=== PATIENT | female | born 1945 | race Caucasian/White ===

== ENCOUNTER 2019-05-06 18:16 | Emergency (ER) | payer MEDICARE, BC ==
[~2019-05-06 18:16] MED LIST: ATROPINE SULFATE INJ 1 MG/10 ML DISP.SYRIN IV ONE; CALCIUM GLUCONATE 1000 MG/10 ML INJ IV ONE; EPINEPHRINE INJ 1 MG/10 ML DISP.SYRIN ONE; NOREPINEPHRINE BITARTRATE INJ/PF 4 MG/4 ML SDV IV ONE; SODIUM BICARBONATE 8.4% INJ 50 MEQ/50 ML DISP.SYRIN ONE
[2019-05-06] MEDS ORDERED: MIDAZOLAM HCL 50 MG/100 ML RTUINJ IV PRN (18:45)
[2019-05-06] MEDS ORDERED: DEXTROSE 5%-WATER 250 ML with EPINEPHRINE/PF 1 MG IV PRN ×2 (18:48)
--- NOTE | 2019-05-06 18:52 | ER Document Report ---
ED General - General Chief Complaint: Unresponsive Stated Complaint: UNRESPONSIVE Time Seen by Provider: 05/06/19 18:16 Notes: 73-year-old female brought in by EMS due to being found unresponsive in her bed at home. Patient has a history of mild dementia, and has been staying with her daughter for the past month and a half and when her daughter came home today she found her mother in her bed, covered with feces and not responding. Daughter checked her blood sugar and it read high on the monitor. Patient has a history of noncompliance with her insulin. When EMS arrived she had a GCS of 3, her pulse ox was 85% on room air and they suspected she had aspirated due to likely hematemesis as they saw coffee-ground emesis in the room. EMS did intubate her with a 7-0 ET tube at 21 at the lip. They intubated her using ketamine and rocuronium. Daughter states that patient had a history of a GI bleed several years ago near her duodenum and her jejunum that was treated with surgery. Has a history of noncompliance with insulin for her diabetes, and has a questionable history of a partial blockage in her heart that has not been followed up. - Related Data Allergies/Adverse Reactions: No Known Allergies Allergy (Unverified 05/06/19 20:45) Past Medical History - General Information source: Relative, Emergency Med Personnel Cannot obtain history due to: Intubated - Social History Smoking Status: Unknown if Ever Smoked Frequency of alcohol use: None Drug Abuse: None Family History: CAD, Other - Dementia Review of Systems - Review of Systems -: Yes ROS unobtainable due to patient's medical condition Physical Exam - Vital signs Vitals: Pulse Ox 95 05/06/19 18:35 Notes: On arrival patient was mildly tachycardic, saturating well while being bagged on room air, not hypotensive. Patient rapidly became bradycardic and hypotensive shortly after being transition from the EMS stretcher to the bed. - Notes Notes: GENERAL: Intubated, does not withdraw from painful stimuli, GCS of 3T. HEAD: Normocephalic, atraumatic EYES: Pupils dilated, equal, reactive to light, approximately 4 mm. ENT: Oral mucosa moist, tongue midline. NECK: Full range of motion, supple, trachea midline. LUNGS: Clear to auscultation bilaterally, no wheezes, rales or rhonchi, being bagged through the ET tube. HEART: Regular rate and rhythm, no murmurs, gallops, rubs. ABDOMEN: Soft, nontender, nondistended, bowel sounds present in all 4 quadrants. EXTREMITIES: Does not spontaneously move any of her extremities. Does not withdraw from painful stimuli, no edema, radial and dorsalis pedis pulses 1/4 bilaterally. No cyanosis. NEUROLOGICAL: GCS 3 T, does not withdraw, currently no gag while intubated. SKIN: Warm, Dry, feces across her lower extremities, no abrasions, no signs of trauma. Course - Re-evaluation Re-evalutation: 05/06/19 20:48 Received a phone call from Dr. Vegas, 20:[address] Tidwell had called him and that Dr. Tidwell was concerned we are missing a STEMI on this patient. I had the flaring machine operator page Dr. Tidwell and I spoke with Dr. Tidwell at 20:14, Dr. Tidwell states that he thinks this patient has a left main occlusion and immediately needs to be flown out for immediate revascularization. I did call cardiac connection at [facility] and faxed to them the EKGs as requested by transfer line for their interventionalists to look at. I am awaiting a phone call back. As the patient appears to have coffee-ground emesis coming out of her NG tube I do not know that is a good idea to give heparin at this time while I am waiting to hear back from [facility]. 05/06/19 22:37 Phone call back from [facility] stated that their cardiac interventionalist, Dr. Simeon does not feel this patient is a candidate for immediate intervention, agrees with me that this patient does not meet STEMI criteria at this time. Recommends that I discussed the patient with their animal treatment investigator. Discussed the patient with animal treatment investigator Dr. Maza, agrees to accept the patient to their ICU, recommends flying if possible given her mounting hyperthermia and the fact that we are only able to do cold liquids and ice packs. Unfortunately [facility] is not flying so patient will be transferred via ground with a critical care transport. 05/06/19 22:42 This part of my note is actually delayed entry regarding the course of her stay from arrival to present time. Patient arrived intubated, being manually bagged, and was unresponsive. Initially vital signs were good with only mild tachycardia, no hypoxia and no bradycardia or hypotension. Shortly after being transitioned from EMS stretcher to the ED bed patient became progressively more bradycardic and hypotensive. I ordered atropine 0.5 mg IV to treat the bradycardia, but before he could be given patient went into cardiac arrest, CPR was started, patient was given milligram of epi and 1 mg of atropine, patient had another milligram of epinephrine and another round of CPR, patient then had ROSC, bedside ultrasound showed moderate cardiac squeeze, no pericardial effusion. Patient was somewhat hypotensive so I did order 0.1 mg of push dose epi, as it was being given patient became quite tachycardic, SVT into the 180s, this normalized after ap proximately 1 minute, patient then became hypotensive a little bit later and was started on about epinephrine drip that eventually had to be titrated to 20 mcg/min. Femoral central line was placed on the right in order to preserve the upper central venous access sites for possible pacemaker in case this patient has tachybradycardia syndrome because she did have a pulseless arrest in asystole that started out as bradycardia and then she immediately became tachycardic. She actually 2 separate episodes of tachycardic 1 that was after epinephrine administration and one that occurred 5 minutes after epinephrine administration. Patient has not yet needed to be paced. 05/06/19 23:13 CBC shows leukocytosis but surprisingly no anemia, no blood has been given at this point, PT and INR are both somewhat prolonged, arterial blood gas shows market acidosis with a pH of 7.0, PCO2 of 51, PO2 of 135, chemistries show hypokalemia of 2.9 but market hyperglycemia at 929. I did start K riders, I hav e not yet started an insulin drip because I want to make sure her potassium is rising before we give her insulin and potentially lower her potassium. Patient CO2 is low at 13, anion gap of 24, BUN and creatinine are elevated indicating renal failure with a BUN of 24 and creatinine of 3.34, lactic acid is markedly elevated at 18.2, calcium is normal, magnesium is elevated, CK, CK-MB MB and troponin are all elevated at 1297, 11.8, 1.9 respectively. Urinalysis shows large blood but only 3 RBCs. NG tube has coffee-ground stomach contents in it, it is heme positive. Patient is now becoming hyperthermic, temp Lerner reveals a temperature of 100.2. Patient is being given non-warmed fluids and ice packs have been placed. CT scan of the head has been completed and does not show any acute bleeding, chest x-ray does not show any signs of pneumonia or pneumonitis from aspiration. Daughter understands the critical nature of her condition, states that the patient is a full code. 05/06/19 23:13 Transport is currently at bedside. Patient is stable for transport. Epinephrine drip has been able to be weaned down a small amount. - Vital Signs Vital signs: Temp Pulse Resp BP Pulse Ox 99.1 F 16 129/52 H 100 05/06/19 22:46 05/06/19 22:45 05/06/19 22:46 05/06/19 22:46 - Laboratory Result Diagrams: 05/06/19 18:41 05/06/19 18:41 Laboratory results interpreted by me: 05/06/19 05/06/19 05/06/19 18:37 18:41 18:41 WBC 25.3 H MCHC 31.1 L RDW 15.1 H Abs Neuts (Manual) 19.7 H Abs Basophils (Manual) 0.3 H PT 19.0 H Carbonic Acid ABG pH ABG pCO2 ABG pO2 ABG HCO3 ABG Total CO2 Sodium Potassium Chloride Carbon Dioxide Anion Gap BUN Creatinine Est GFR ( Amer) Est GFR (MDRD) Non-Af Glucose POC Glucose 326 H Lactic Acid Magnesium Direct Bilirubin AST Creatine Kinase CK-MB (CK-2) Urine Protein Urine Glucose (UA) Urine Ketones Urine Blood 05/06/19 05/06/19 05/06/19 18:41 18:41 18:41 WBC MCHC RDW Abs Neuts (Manual) Abs Basophils (Manual) PT Carbonic Acid ABG pH ABG pCO2 ABG pO2 ABG HCO3 ABG Total CO2 Sodium 145.3 H Potassium 2.9 L* Chloride 92 L Carbon Dioxide 13 L Anion Gap 40 H BUN 24 H Creatinine 3.34 H Est GFR ( Amer) 16 L Est GFR (MDRD) Non-Af 14 L Glucose 929 H* POC Glucose Lactic Acid 18.2 H Magnesium 3.7 H Direct Bilirubin 0.5 H AST 397 H Creatine Kinase 1297 H CK-MB (CK-2) 11.80 H Urine Protein Urine Glucose (UA) Urine Ketones Urine Blood 05/06/19 05/06/19 19:11 21:54 WBC MCHC RDW Abs Neuts (Manual) Abs Basophils (Manual) PT Carbonic Acid 1.56 H ABG pH 7.00 L* ABG pCO2 51.7 H ABG pO2 135.9 H ABG HCO3 12.5 L ABG Total CO2 14.1 L Sodium Potassium Chloride Carbon Dioxide Anion Gap BUN Creatinine Est GFR ( Amer) Est GFR (MDRD) Non-Af Glucose POC Glucose Lactic Acid Magnesium Direct Bilirubin AST Creatine Kinase CK-MB (CK-2) Urine Protein >=500 H Urine Glucose (UA) >=500 H Urine Ketones 20 H Urine Blood LARGE H - EKG Interpretation by Me Additional EKG results interpreted by me: 05/06/19 23:14 EKG shows sinus tachycardia at a rate of 104, LVH, ST segment elevations in 3 and aVR, no contiguous elevations, there are depressions in 1, 2, aVL, V3 through V6 per my interpretation. Repeat EKG at 2019 shows sinus tachycardia at a rate of 103, LVH, persistent ST segment elevations in lead III and aVR, no contiguous changes, slight improvement in ST segment depressions, they have resolved in lead II, they are persistent in lead I, aVL, V3 through V6 per my interpretation. Procedures - Central Line Right Femoral Consent obtained: Yes Central line pre-insertion: Sterile PPE donned, Chloraprep applied, Sterile drapes applied Central line size (Fr.): 20 Central line lumen type: Triple Ultrasound guided: Yes CM at insertion site: 20 Line secured with sutures: Yes Central line post-insertion: Blood return from lumens, Biopatch applied, Sutured, Sterile dressing applied Number of attempts: 1 Complications: No Critical Care Note - Critical Care Note Total time excluding time spent on procedures (mins): 140 Discharge - Discharge Clinical Impression: Cardiac arrest, Acute respiratory failure with hypoxia, Mixed metabolic and respiratory acidosis, Lactic acidosis, Hypokalemia, Elevated troponin Acute renal failure Qualifiers: Acute renal failure type: unspecified Qualified Code(s): N17.9 - Acute kidney failure, unspecified Hyperglycemia due to type 2 diabetes mellitus Qualifiers: Diabetes mellitus long term care administrator insulin use: with long term care administrator use Qualified Code(s): E11.65 - Type 2 diabetes mellitus with hyperglycemia; Z79.4 - predatory animal exterminator (current) use of insulin Condition: Critical Disposition: [facility]
[2019-05-06 19:03] LABS: HEMATOCRIT 45.6 % (36.0-47.0); HEMOGLOBIN 14.2 g/dL (12.0-15.5); MEAN CORPUSCULAR HEMOGLOBIN 29.8 pg (27.0-33.4); MEAN CORPUSCULAR HGB CONC 31.1 g/dL (32.0-36.0); MEAN CORPUSCULAR VOLUME 96 fl (80-97); PLATELET COUNT 311 10^3/uL (150-450); RED BLOOD COUNT 4.77 10^6/uL (3.72-5.28); RED CELL DISTRIBUTION WIDTH 15.1 % (11.5-14.0); WHITE BLOOD COUNT 25.3 10^3/uL (4.0-10.5)
[2019-05-06 19:11] LABS: ALBUMIN 3.7 g/dL (3.5-5.0); ALKALINE PHOSPHATASE 116 U/L (38-126); BILIRUBIN,DIRECT 0.5 mg/dL (0.0-0.4); BILIRUBIN,TOTAL 0.6 mg/dL (0.2-1.3); BLOOD UREA NITROGEN 24 mg/dL (7-20); CALCIUM 9.7 mg/dL (8.4-10.2); CARBON DIOXIDE 13 mmol/L (22-30); CHLORIDE 92 mmol/L (98-107); CREATINE KINASE 1297 U/L (30-135); INTERNATIONAL RATION (INR) 1.58; TOTAL PROTEIN 6.8 g/dL (6.3-8.2)
--- NOTE | 2019-05-06 19:14 | RADIOLOGY REPORT (SQ) ---
EXAM DESCRIPTION: CHEST SINGLE VIEW COMPLETED DATE/TIME: 05/06/2019 7:00 pm REASON FOR STUDY: post arrest COMPARISON: None. EXAM PARAMETERS: NUMBER OF VIEWS: One view. TECHNIQUE: Single frontal radiographic view of the chest acquired. RADIATION DOSE: NA LIMITATIONS: None. FINDINGS: LUNGS AND PLEURA: Mild interstitial prominence, probably chronic. No opacities, masses or pneumothorax. No pleural effusion. MEDIASTINUM AND HILAR STRUCTURES: No masses. Contour normal. HEART AND VASCULAR STRUCTURES: Heart upper limits of normal in size. Normal vasculature. BONES: No acute findings. HARDWARE: Endotracheal tube, tip located 4 cm proximal to the beatriz. OTHER: No other significant finding. IMPRESSION: ENDOTRACHEAL TUBE IN SATISFACTORY POSITION. NO ACUTE RADIOGRAPHIC FINDING IN THE CHEST. TECHNICAL DOCUMENTATION: JOB ID: [id number] 2010 [employer]- All Rights Reserved Reading location - IP/workstation name: [email or web address]
[2019-05-06 19:17] LABS: ANION GAP 40 (5-19)
[2019-05-06 19:19] LABS: ASPARTATE AMINO TRANSFERASE 397 U/L (14-36)
[2019-05-06 19:21] LABS: GLUCOSE 929 mg/dL (75-110); POTASSIUM 2.9 mmol/L (3.6-5.0)
[2019-05-06 19:23] LABS: CREATINE KINASE MB 11.8 ng/mL (<4.55)
[2019-05-06 19:34] LABS: ABSOLUTE LYMPHOCYTES# (MANUAL) 4.3 10^3/uL (0.5-4.7); ABSOLUTE MONOCYTES # (MANUAL) 0.8 10^3/uL (0.1-1.4); ANISOCYTOSIS SLIGHT; BASOPHILS % (MANUAL) 1 % (0-2); EOSINOPHILS % (MANUAL) 1 % (0-6); LYMPHOCYTES % (MANUAL) 17 % (13-45); MONOCYTES % (MANUAL) 3 % (3-13); NUCLEATED RED BLOOD CELLS 1 /100 WBC (0); SEGMENTED NEUTROPHILS % (MAN) 78 % (42-78); TOTAL CELLS COUNTED 100
[2019-05-06 19:35] LABS: PLATELET COMMENT ADEQUATE; TROPONIN I 1.91 ng/mL
[2019-05-06] MEDS ORDERED: EPINEPHRINE INJ/PF 1 MG/1 ML AMPULE ONE ×4 (19:41→22:06)
--- NOTE | 2019-05-06 20:05 | EKG REPORT ---
SEVERITY:- ABNORMAL ECG - SINUS TACHYCARDIA PROBABLE LEFT ATRIAL ABNORMALITY LVH WITH SECONDARY REPOLARIZATION ABNORMALITY ELEVATION IN aVR with DIFFUSE ST DEPRESSION SUGGESTS SUBENDOCARDIAL ISCHEMIA AND INFARCTION OF THE BA JENA SEPTUM ,IS AN INDICATION FOR ACUTE REPERFUSION THERAPY.REPORT CALLED TO ER. BORDERLINE PROLONGED QT INTERVAL : Confirmed by: Jesse Tidwell MD 06-May-2019 20:05:34
[2019-05-06 20:08] LABS: APPEARANCE,URINE CLOUDY; BILIRUBIN,URINE NEGATIVE (NEGATIVE); COLOR,URINE YELLOW; GLUCOSE, URINE >=500 mg/dL (NEGATIVE); KETONES,URINE 20 mg/dL (NEGATIVE); LEUKOCYTE ESTERASE,URINE NEGATIVE (NEGATIVE); NITRITE,URINE NEGATIVE (NEGATIVE); PROTEIN,URINE >=500 mg/dL (NEGATIVE); URINE SPECIFIC GRAVITY 1.024; UROBILINOGEN,URINE NEGATIVE mg/dL (<2.0)
[2019-05-06] MEDS ORDERED: RINGERS SOLUTION,LACTATED 1,000 ML IV PRN (20:17)
[2019-05-06] MEDS: POTASSI CL 20 MEQ/50 ML RIDER 20 MEQ/50 ML RTUPB IV SCH ×2 (20:40→22:09)
[2019-05-06] MEDS ORDERED: AZITHROMYCIN INJ 500 MG VIAL IV ONE (21:58)
[2019-05-06] MEDS ORDERED: CEFTRIAXONE 1 GM/D5W RTU 1 GM/50 ML RTUPB IV ONE (21:58)
[2019-05-06 22:09] LABS: ARTERIAL BLOOD BASE EXCESS -18.7 mmol/L; ARTERIAL BLOOD H2CO3 1.56 mmol/L (1.05-1.35); ARTERIAL BLOOD HCO3 12.5 mmol/L (20-24); ARTERIAL BLOOD O2 SATURATION 97.1 % (94-98); ARTERIAL BLOOD PCO2 51.7 mmHg (35-45); ARTERIAL BLOOD PO2 135.9 mmHg (80-100); ARTERIAL BLOOD TOTAL CO2 14.1 mmol/L (21-25)
[2019-05-06 22:10] LABS: ARTERIAL BLOOD FIO2 80%
--- NOTE | 2019-05-06 22:14 | RADIOLOGY REPORT (SQ) ---
EXAM DESCRIPTION: CT HEAD WITHOUT IV CONTRAST COMPLETED DATE/TME: 05/06/2019 21:00 CLINICAL HISTORY: 73 years, Female, unresponsive COMPARISON: None. TECHNIQUE: Noncontrast CT of the head was performed. Coronal and sagittal reformations were created. Images stored on PACS. All CT scanners at this facility use dose modulation, iterative reconstruction, and/or weight based dosing when appropriate to reduce radiation dose to as low as reasonably achievable (ALARA). [facility]: Dose Right [facility]: CareDose [facility]: Dose Right [facility]: Teradose 4D [facility]: DineroMail LIMITATIONS: None. FINDINGS: Evaluation of the brain parenchyma reveals mild periventricular and patchy subcortical white matter low attenuation. In addition, there is a regional area of hypodensity located about the left frontal parietal region towards the vertex on image 23 of series 2. These areas demonstrate some degree of sulcal effacement. Ventricles and sulcal spaces are otherwise moderately enlarged. Globes and orbits show no acute abnormality. Paranasal sinuses and mastoid air cells are clear. The sella is nearly completely empty. IMPRESSION: Regional area of hypoattenuation located about the left frontal parietal region towards the vertex with suspected mild sulcal effacement about these regions. Overall, these findings are suspicious for an evolving acute infarct. Correlation with MRI would be of benefit for confirmation. Otherwise, mild chronic microvascular ischemic change with moderate generalized atrophy. TECHNICAL DOCUMENTATION: Quality ID # [id number]: Final reports with documentation of one or more dose reduction techniques (e.g., Automated exposure control, adjustment of the mA and/or kV according to patient size, use of iterative reconstruction technique) copyright 2011 [employer]- All Rights Reserved
[2019-05-06 22:55] LABS: HEMATOCRIT 42.7 % (36.0-47.0); HEMOGLOBIN 12.9 g/dL (12.0-15.5); MEAN CORPUSCULAR HEMOGLOBIN 30.1 pg (27.0-33.4); MEAN CORPUSCULAR HGB CONC 30.2 g/dL (32.0-36.0); PLATELET COUNT 295 10^3/uL (150-450); RED BLOOD COUNT 4.28 10^6/uL (3.72-5.28); RED CELL DISTRIBUTION WIDTH 15.4 % (11.5-14.0); WHITE BLOOD COUNT 28.6 10^3/uL (4.0-10.5)
[2019-05-06 23:00] LABS: MEAN CORPUSCULAR VOLUME 100 fl (80-97)
[2019-05-06 23:01] VITALS: BP 129/52
[2019-05-06 23:07] LABS: ALBUMIN 3.2 g/dL (3.5-5.0); ALKALINE PHOSPHATASE 118 U/L (38-126); BILIRUBIN,DIRECT 0.6 mg/dL (0.0-0.4); BILIRUBIN,TOTAL 0.7 mg/dL (0.2-1.3); BLOOD UREA NITROGEN 26 mg/dL (7-20); CALCIUM 7.7 mg/dL (8.4-10.2); CARBON DIOXIDE 13 mmol/L (22-30); POTASSIUM 3.6 mmol/L (3.6-5.0); TOTAL PROTEIN 6.1 g/dL (6.3-8.2)
[2019-05-06 23:12] LABS: CHLORIDE 91 mmol/L (98-107)
[2019-05-06 23:13] LABS: ANION GAP 33 (5-19)
[2019-05-06 23:16] LABS: ASPARTATE AMINO TRANSFERASE 1381 U/L (14-36); GLUCOSE 1141 mg/dL (75-110)
[2019-05-06] MEDS ORDERED: INSULIN REG, HUMAN 100 UNIT/ML 3 ML VIAL (PYX) IV ONE (23:19)
[2019-05-06] MEDS ORDERED: INSULIN REG, HUMAN 100 UNIT/ML 3 ML VIAL (PYX) ONE (23:22)
[2019-05-06 23:33] LABS: BAND NEUTROPHILS % (MANUAL) 8 % (3-5); SEGMENTED NEUTROPHILS % (MAN) 75 % (42-78); TOTAL CELLS COUNTED 100
[2019-05-06 23:34] LABS: ABSOLUTE MONOCYTES # (MANUAL) 0.9 10^3/uL (0.1-1.4); BASOPHILS % (MANUAL) 0 % (0-2); EOSINOPHILS % (MANUAL) 0 % (0-6); LYMPHOCYTES % (MANUAL) 14 % (13-45); MONOCYTES % (MANUAL) 3 % (3-13)
[2019-05-06 23:39] LABS: PLATELET COMMENT ADEQUATE
[2019-05-06 23:41] LABS: ANISOCYTOSIS SLIGHT; TEAR DROP CELLS SLIGHT
--- NOTE | 2019-05-07 09:29 | EKG REPORT ---
SEVERITY:- ABNORMAL ECG - SINUS TACHYCARDIA PROBABLE LEFT ATRIAL ABNORMALITY LVH WITH SECONDARY REPOLARIZATION ABNORMALITY ST ELEVATION aVR AND ST DEPRESSIONS, ANT-LAT LDS IS SUGGESTIVE OF CRITICAL OCCLUSION OF L MAIN/LAD/ O R MULTIVESSEL DISEASE, AND INTERVENTIONALIST SHOULD BE CONSULTED FOR EMERGENCY LHC AND ACUTE REPERFUS ION, ESPECIALLY IN SETTING OF HYPOTENSION/SHOCK. BORDERLINE PROLONGED QT INTERVAL : Confirmed by: Jesse Tidwell MD 07-May-2019 06:59:16
== END 2019-05-06 23:17 | disposition short-term general hospital (02) ==
LOC: ER 18:16
DX: I46.9 Cardiac arrest, cause unspecified (principal); J96.01 Acute respiratory failure with hypoxia; E87.4 Mixed disorder of acid-base balance; E87.6 Hypokalemia; R79.89 Other specified abnormal findings of blood chemistry; N17.9 Acute kidney failure, unspecified; E11.65 Type 2 diabetes mellitus with hyperglycemia; F03.90 Unspecified dementia, unspecified severity, without behavioral disturbance, psychotic disturbance, mood disturbance, and anxiety; Z79.4 Long term (current) use of insulin
CPT/HCPCS: 36415; 36600; 51702; 70450; 71045; 80053; 81001; 82550; 82553; 82803; 82962; 83605; 83735; 84484; 85025; 85610; 86850; 86900; 86901; 87040; 87070; 87077; 87150; 87186; 92950; 93005; 93010; 94660; 96365; 96367; 96368; 99291; 99292; J0171; J0456; J0461; J0610; J0696; J3480; J3490; J7060; J7120